=== PATIENT | female | born 1960 | race Caucasian/White ===

== ENCOUNTER 2024-04-16 17:50 | Observation (INO) | payer BC ==
--- NOTE | 2024-04-16 18:01 | ED ---
SOB HPI - General Chief Complaint: Shortness of Breath Stated Complaint: INGA Source: patient, EMS, RN notes reviewed, old records reviewed Mode of arrival: ambulatory Limitations: no limitations - History of Present Illness Initial Comments: This is a 63-year-old female to ER for severe shortness of breath throughout the day today. Worse when she woke up. History of smoking no lung doctor does have bad COPD. No travel history no sick contacts no current chest pain MD Complaint: shortness of breath, cough, chest pain, pain with inspiration -: days(s) Severity: moderate Severity scale (1-10): 6 Consistency: constant Improves With: nothing Worsens With: nothing Context: recent URI, recent illness Associated Symptoms: chest pain, pain with inspiration, cough, sputum production Treatments Prior to Arrival: none - Related Data Home Oxygen Therapy: No Home Medications Medication Instructions Recorded Confirmed Albuterol Sulfate [Albuterol 2 puff INHALATION RT-QID PRN 04/16/24 04/16/24 Sulfate Hfa] Aspirin EC [Ecotrin] 325 mg PO DAILY PRN 04/16/24 04/16/24 rOPINIRole HCL [Requip] 4 mg PO HS PRN 04/16/24 04/16/24 Allergies Allergy/AdvReac Type Severity Reaction Status Date / Time No Known Allergies Allergy Verified 04/16/24 19:04 Review of Systems ROS Statement: Those systems with pertinent positive or pertinent negative responses have been documented in the HPI. ROS Other: All systems not noted in ROS Statement are negative. Past Medical History Past Medical History: COPD History of Any Multi-Drug Resistant Organisms: None Reported Additional Past Surgical History / Comment(s): right foot surgery. Past Psychological History: No Psychological Hx Reported Smoking Status: Current some day smoker Past Alcohol Use History: None Reported Past Drug Use History: Marijuana General Exam Limitations: no limitations General appearance: alert, anxious, in distress Head exam: Present: atraumatic, normocephalic, normal inspection Eye exam: Present: normal appearance, PERRL, EOMI. Absent: scleral icterus, conjunctival injection, periorbital swelling ENT exam: Present: normal exam, mucous membranes moist Neck exam: Present: normal inspection. Absent: tenderness, meningismus, lymphadenopathy Respiratory exam: Present: normal lung sounds bilaterally, respiratory distress, wheezes, accessory muscle use, decreased breath sounds, prolonged expiratory. Absent: rales, rhonchi, stridor Cardiovascular Exam: Present: normal rhythm, tachycardia, normal heart sounds. Absent: systolic murmur, diastolic murmur, rubs, gallop, clicks GI/Abdominal exam: Present: soft, normal bowel sounds. Absent: distended, tenderness, guarding, rebound, rigid Extremities exam: Present: normal inspection, full ROM, normal capillary refill. Absent: tenderness, pedal edema, joint swelling, calf tenderness Back exam: Present: normal inspection Neurological exam: Present: alert, oriented X3, CN II-XII intact Psychiatric exam: Present: normal affect, normal mood Skin exam: Present: warm, dry, intact, normal color. Absent: rash Course Vital Signs 04/16/24 04/16/24 04/16/24 17:53 18:27 18:43 Temperature 98 F Pulse Rate 117 H 115 H 115 H Respiratory 18 Rate Blood Pressure 158/103 O2 Sat by Pulse 94 L Oximetry 04/16/24 18:44 Temperature Pulse Rate 110 H Respiratory 20 Rate Blood Pressure 122/80 O2 Sat by Pulse 96 Oximetry - Reevaluation(s) Reevaluation #1: 04/16/24 18:01 Medical records reviewed Reevaluation #2: 04/16/24 19:42 Patient's heart rate is still high short of breath here in the ER Reevaluation #3: 04/16/24 19:42 Patient informed of results questions answered Reevaluation #4: Was pt. sent in by a medical professional or institution (, PA, POWER PLANT TECHNICIAN, urgent care, hospital, or custodial...) When possible be specific @ -no Did you speak to anyone other than the patient for history (EMS, parent, family, police, friend...)? What history was obtained from this source @ -no Did you review nursing and triage notes (agree or disagree)? Why? @ -agree Are old charts reviewed (outside hosp., previous admission, EMS record, old EKG, old radiological studies, urgent care reports/EKG's, custodial records)? Report findings @ -yes Differential Diagnosis (chest pain, altered mental status, abdominal pain women, abdominal pain men, vaginal bleeding, weakness, fever, dyspnea, syncope, headache, dizziness, GI bleed, back pain, seizure, CVA, palpatations, mental hea lth, musculoskeletal)? @ -prior EKG interpreted by me (3pts min.). @ -yes X-rays interpreted by me (1pt min.). @ -yes negative for acute disease CT interpreted by me (1pt min.). @ -no U/S interpreted by me (1pt. min.). @ -no What testing was considered but not performed or refused? (CT, X-rays, U/S, labs)? Why? @ -none What meds were considered but not given or refused? Why? @ -none Did you discuss the management of the patient with other professionals (professionals i.e. , PA, POWER PLANT TECHNICIAN, lab, RT, psych nurse, certified social workers in health care, host and hostess, teacher, forest fire officer, case management rn)? Give summary @ -no Was smoking cessation discussed for >3mins.? @ -no Was critical care preformed (if so, how long)? @ -no Were there social determinants of health that impacted care today? How? (Homelessness, low income, unemployed, alcoholism, drug addiction, transportation, low edu. Level, literacy, decrease access to med. care, usp, rehab)? @ -none Was there de-escalation of care discussed even if they declined (Discuss DNR or withdrawal of care, Hospice)? DNR status @ -no What co-morbidities impacted this encounter? (DM, HTN, Smoking, COPD, CAD, Cancer, CVA, ARF, Chemo, Hep., AIDS, mental health diagnosis, sleep apnea, morbid obesity)? @ -none Was patient admitted / discharged? Hospital course, mention meds given and route, prescriptions, significant lab abnormalities, going to OR and other per tinent info. @ - Undiagnosed new problem with uncertain prognosis? @ -no Drug Therapy requiring intensive monitoring for toxicity (Heparin, Nitro, Insulin, Cardizem)? @ -no Were any procedures done? @ -no Diagnosis/symptom? @ - Acute, or Chronic, or Acute on Chronic? @ -Acute Uncomplicated (without systemic symptoms) or Complicated (systemic symptoms)? @ -Complicated Side effects of treatment? @ -no Exacerbation, Progression, or Severe Exacerbation? @ -exacerbation Poses a threat to life or bodily function? How? (Chest pain, [place], [place], pneumonia, PE, COPD, DKA, ARF, appy, cholecystitis, CVA, Diverticulitis, Homicidal, Suicidal, threat to staff... and all critical care pts) @ -yes Reevaluation #5: Differential Dyspnea: Coronary syndrome, arrhythmia, tamponade, asthma, COPD, pulmonary embolism, pneumonia, pneumothorax, pulmonary effusion, anaphylaxis, diabetic ketoacidosis, flailed chest, pulmonary contusion, diaphragmatic rupture, anemia, neuromuscula r, this is not meant to be an all-inclusive list. - Consultations Consultation #1: Spoke with sound who agrees to admit this patient Medical Decision Making - Medical Decision Making 63 female severe COPD exacerbation will admit for breathing treatments and supportive care - Lab Data Result diagrams: 04/16/24 18:35 04/16/24 18:35 Lab Results 04/16/24 04/16/24 04/16/24 Range/Units 18:35 18:35 18:35 WBC 7.6 (3.8-10.6) k/uL RBC 4.80 (3.80-5.40) m/uL Hgb 15.0 (11.4-16.0) gm/dL Hct 45.8 (34.0-46.0) % MCV 95.4 (80.0-100.0) fL MCH 31.2 (25.0-35.0) pg MCHC 32.7 (31.0-37.0) g/dL RDW 12.6 (11.5-15.5) % Plt Count 232 (150-450) k/uL MPV 6.9 Neutrophils % 76 % Lymphocytes % 11 % Monocytes % 9 % Eosinophils % 0 % Basophils % 1 % Neutrophils # 5.7 (1.3-7.7) k/uL Lymphocytes # 0.8 L (1.0-4.8) k/uL Monocytes # 0.7 (0-1.0) k/uL Eosinophils # 0.0 (0-0.7) k/uL Basophils # 0.1 (0-0.2) k/uL PT 11.1 (10.0-12.5) sec INR 1.0 (<1.2) APTT 24.5 (22.0-30.0) sec Sodium 130 L (137-145) mmol/L Potassium 3.5 (3.5-5.1) mmol/L Chloride 93 L (98-107) mmol/L Carbon Dioxide 30 (22-30) mmol/L Anion Gap 7 mmol/L BUN 11 (7-17) mg/dL Creatinine 0.55 (0.52-1.04) mg/dL Est GFR (CKD-EPI)AfAm >90 (>60 ml/min/1.73 sqM) Est GFR (CKD-EPI)NonAf >90 (>60 ml/min/1.73 sqM) Glucose 123 H (74-99) mg/dL Plasma Lactic Acid Bryson (0.7-2.0) mmol/L Calcium 8.4 (8.4-10.2) mg/dL Magnesium 1.8 (1.6-2.3) mg/dL Total Bilirubin 0.5 (0.2-1.3) mg/dL AST 33 (14-36) U/L ALT 18 (4-34) U/L Alkaline Phosphatase 70 (38-126) U/L Troponin I (0.000-0.034) ng/mL NT-Pro-B Natriuret Pep 961 pg/mL Total Protein 6.5 (6.3-8.2) g/dL Albumin 4.0 (3.5-5.0) g/dL 04/16/24 04/16/24 Range/Units 18:35 18:35 WBC (3.8-10.6) k/uL RBC (3.80-5.40) m/uL Hgb (11.4-16.0) gm/dL Hct (34.0-46.0) % MCV (80.0-100.0) fL MCH (25.0-35.0) pg MCHC (31.0-37.0) g/dL RDW (11.5-15.5) % Plt Count (150-450) k/uL MPV Neutrophils % % Lymphocytes % % Monocytes % % Eosinophils % % Basophils % % Neutrophils # (1.3-7.7) k/uL Lymphocytes # (1.0-4.8) k/uL Monocytes # (0-1.0) k/uL Eosinophils # (0-0.7) k/uL Basophils # (0-0.2) k/uL PT (10.0-12.5) sec INR (<1.2) APTT (22.0-30.0) sec Sodium (137-145) mmol/L Potassium (3.5-5.1) mmol/L Chloride (98-107) mmol/L Carbon Dioxide (22-30) mmol/L Anion Gap mmol/L BUN (7-17) mg/dL Creatinine (0.52-1.04) mg/dL Est GFR (CKD-EPI)AfAm (>60 ml/min/1.73 sqM) Est GFR (CKD-EPI)NonAf (>60 ml/min/1.73 sqM) Glucose (74-99) mg/dL Plasma Lactic Acid Bryson 1.2 (0.7-2.0) mmol/L Calcium (8.4-10.2) mg/dL Magnesium (1.6-2.3) mg/dL Total Bilirubin (0.2-1.3) mg/dL AST (14-36) U/L ALT (4-34) U/L Alkaline Phosphatase (38-126) U/L Troponin I <0.012 (0.000-0.034) ng/mL NT-Pro-B Natriuret Pep pg/mL Total Protein (6.3-8.2) g/dL Albumin (3.5-5.0) g/dL - EKG Data -: EKG Interpreted by Me (EKG sinus tachycardia 116 TN 124 QRS 85 QTc 440) - Radiology Data Radiology results: report reviewed (Chest x-ray is negative for acute disease), image reviewed Disposition Referrals: Shan Fu MD [Primary Care Provider] - 1-2 days
[2024-04-16] MEDS: IPRATROPIUM-ALBUTEROL 3 ML NEB INHALATION STA (18:26)
--- NOTE | 2024-04-16 18:31 | XR ---
EXAMINATION TYPE: XR chest 1V portable DATE OF EXAM: 04/16/2024 6:23 PM COMPARISON: None. CLINICAL INDICATION: Female, 63 years old with history of sob; [facility] TECHNIQUE: XR chest 1V portable Frontal view of the chest. FINDINGS: Cardiac silhouette is within normal limits for size. No acute focal consolidation. Questionable additional left upper lobe spiculated region of nodularity versus scarring. No acute focal consolidation. No pleural effusion. No pneumothorax. Indeterminate spiculated 11 mm region of nodularity in the right upper lobe. No acute osseous abnormality. IMPRESSION: 1. No acute cardiopulmonary disease/process. 2. Indeterminant spiculated region of nodularity in the right upper lobe measuring [address] chest for further evaluation. [facility], , 04/16/2024 6:29 PM
[2024-04-16 18:45] LABS: Basophils # (A) 0.1 k/uL (0-0.2); Basophils % (A) 1 %; Eosinophils % (A) 0 %; HCT 45.8 % (34.0-46.0); Lymphocytes # (A) 0.8 k/uL (1.0-4.8); Lymphocytes % (A) 11 %; MCH 31.2 pg (25.0-35.0); MCHC 32.7 g/dL (31.0-37.0); MCV 95.4 fL (80.0-100.0); Mean Platelet Volume 6.9; Monocytes # (A) 0.7 k/uL (0-1.0); Monocytes % (A) 9 %; Neutrophils # (A) 5.7 k/uL (1.3-7.7); Neutrophils % (A) 76 %; Platelet Count 232 k/uL (150-450); RDW 12.6 % (11.5-15.5); WBC 7.6 k/uL (3.8-10.6)
[2024-04-16] MEDS: SODIUM CHLORIDE 0.9% 1,000 ML IV STA ×3 (18:51→20:17)
[2024-04-16 18:53] LABS: Partial Thromboplastin Time 24.5 sec (22.0-30.0); Prothrombin Time 11.1 sec (10.0-12.5)
[2024-04-16 18:56] LABS: ALT 18 U/L (4-34); AST 33 U/L (14-36); African American GFR (CKD) >90 (>60 ml/min/1.73 sqM); Alkaline Phosphatase 70 U/L (38-126); Anion Gap 7 mmol/L; Blood Urea Nitrogen 11 mg/dL (7-17); Calcium 8.4 mg/dL (8.4-10.2); Carbon Dioxide 30 mmol/L (22-30); Chloride 93 mmol/L (98-107); Glucose 123 mg/dL (74-99); Magnesium 1.8 mg/dL (1.6-2.3); Non-African American GFR(CKD) >90 (>60 ml/min/1.73 sqM); Potassium 3.5 mmol/L (3.5-5.1); Sodium 130 mmol/L (137-145); Total Bilirubin 0.5 mg/dL (0.2-1.3); Total Protein 6.5 g/dL (6.3-8.2)
[2024-04-16 19:04] LABS: NT-Pro-B-Type Natriuretic Pept 961 pg/mL
[2024-04-16] MEDS ORDERED: ONDANSETRON 4 MG/2 ML VIAL IVP PRN (19:39)
[2024-04-16] MEDS ORDERED: MORPHINE SULFATE 4 MG/ML SYRINGE IV PRN (19:39)
[2024-04-16] MEDS ORDERED: NALOXONE 0.4 MG/ML 1 ML VIAL IV PRN (19:39)
[2024-04-16] MEDS ORDERED: LORazepam 0.5 MG TAB PO PRN (19:39)
[2024-04-16] MEDS: methylPREDNISolone SOD SUCCI 125 MG/2 ML VIAL IV STA (20:16)
[2024-04-16] MEDS: ALBUTEROL NEBULIZED 2.5 MG/3 ML INHALATION SCH (20:24)
[2024-04-16 21:51] LABS: ABG Base Excess 0.5 mmol/L; ABG HCO3 28 mmol/L (21-25); ABG Oxygen Saturation 98.5 % (94-97); ABG PCO2 57 mmHg (35-45); ABG PO2 112 mmHg (83-108); ABG TCO2 30 mmol/L (19-24); Allen Test Performed? Yes
[2024-04-16] MEDS: ACETAMINOPHEN TAB 325 MG TAB PO PRN (22:04)
[2024-04-16] MEDS: SODIUM CHLORIDE 0.9% 1,000 ML IV SCH (22:15)
[2024-04-16] MEDS ORDERED: rOPINIRole HCL 4 MG TABLET PO PRN (23:13)
--- NOTE | 2024-04-17 00:59 | P.HPIM ---
History of Present Illness H&P Date: 04/16/24 Patient is a 63-year-old female with past history of COPD (not on home oxygen) presents to the ER with worsening shortness of breath. Patient states that she has been feeling short of breath for the past 1 week but it has worsened from the past 2 days. Patient was feeling very short of breath early this morning and her blood pressure was 170/106. Patient therefore decided to come to the ER for further evaluation of her ongoing symptoms. Patient has also been experiencing moderately productive cough which initially was clear but has turned more thick and greenish in color in the last couple of days. Patient is also experiencing mild fever with chills associate with some fatigue and anila rgy. Patient is not established with a warehouse assistant but currently uses albuterol prescribed by her PCP. Apparently she has hx of COPD stage 3 as per PCP. Patient have noted that she has been using her albuterol inhaler up to 4-5 times per day for the past week or so. Patient is not dependent on home oxygen. Patient denies any previous hospitalization for COPD exacerbation. Denies any recent travel or hospitalization. Patient is not on any blood thinner. Patient has significant smoking history. She has smoked close to a pack per day for the last 4 years. Patient otherwise denies any chest pain, swelling of legs, nausea, vomiting, weakness and numbness or tingling in upper or lower extremities. Laboratory data: WBC 7.6, hemoglobin 15.0, platelet count 232 ABG: pH 7.30, pCO2 57, HCO3 28 Sodium 130, potassium 3.5, chloride 93, bicarb 30, BUN 11, creatinine 0.55, glucose 150, magnesium 1.8, total bili 0.5, AST 33, ALT 18, ALP 78, troponin is less than 0.012, NT proBNP 961 Images: Chest x-ray in the ER interpreted independently shows no acute cardiopulmonary disease or process. There is a indeterminate spiculated region of nodularity in the right upper lobe measuring up to 11 mm. Vitals: Vitals on arrival: 98 F, heart rate 117, respirate 18, blood pressure 158/103, oxygen saturation 94% on 3 L by nasal, Review of systems: Pertinent positives and negatives as discussed in HPI, a complete review of systems was performed and all other systems are negative. Social history: Tobacco: As in HPI Alcohol: None Recreational drugs: None Travel: None Family History: Mother has ovarian cancer Physical examination: Vital signs reviewed General: non toxic, no distress, older than stated age, normal weight Derm: no unusual rashes/lesions, warm Head: atraumatic, normocephalic, symmetric Eyes: EOMI, anicteric sclera, pupils equal round reactive to light ENT: Nose and ears atraumatic Neck: No cervical lymphadenopathy, trachea midline, supple Mouth: no lip lesion, mucus membranes moist Cardiovascular: S1S2 reg, no murmur, positive dorsalis pedis pulse bilateral, no edema Lungs: Bilateral diffuse inspiratory and expiratory wheezing, no rhonchi, no rales, no accessory muscle use Abdominal: soft, nontender to palpation, no guarding Ext: muscle strength 5 out of 5 in all 4 extremities grossly, no gross muscle atrophy, no contractures, Neuro: CN II-XI grossly intact, no gross focal neuro deficits Psych: Alert, oriented, appropriate affect Assessment/Plan: Patient is a 63-year-old female with past history of COPD presents to the ER with worsening shortness of breath for the past 2 days. Case was discussed with the Emergency Room provider and decision was made to admit the patient for COPD exacerbation #COPD exacerbation #Acute hypoxemic respiratory failure Patient received a stat dose of IV Solu-Medrol 125 mg Continue with IV Solu-Medrol 60 mg every 6 hour DuoNeb as scheduled and [id number] Consult pulmonology Oxygen therapy as needed with target SpO2 between 88% to 92% No need for antibiotic at this time CBC in a.m. #Incidental finding of lung nodule Chest x-ray shows there is a indeterminate spiculated region of nodularity in the right upper lobe measuring up to 11 mm. Outpatient follow-up for repeat CT scan #Hypovolemic hyponatremia secondary to poor oral intake Continue with IV normal saline at 75 cc/h Continue monitor BMP in a.m. #Hyperglycemia Serum glucose 123 Accu-Cheks and insulin scale insulin Repeat HbA1c #Uncompensated respiratory acidosis in the setting of COPD exacerbation ABG: pH 7.30, pCO2 57, HCO3 28 DVT prophylaxis: Lovenox subcu 40 mg daily GI prophylaxis: None F: IV normal saline 75 cc per E: Replete as needed N: Regular diet A: Ambulatory at baseline The patient is admitted with an anticipated less than than 2 midnight stay for evaluation of COPD exacerbation CODE STATUS: DNR Discussed with: Patient Anticipated discharge place: Pending total course Dictation was produced using mPortal dictation software. Please excuse any grammatical, word or spelling errors. Past Medical History Past Medical History: COPD History of Any Multi-Drug Resistant Organisms: None Reported Additional Past Surgical History / Comment(s): right foot surgeryx3 Past Anesthesia/Blood Transfusion Reactions: No Reported Reaction Past Psychological History: No Psychological Hx Reported Smoking Status: Current some day smoker Past Alcohol Use History: None Reported Past Drug Use History: Marijuana Medications and Allergies Home Medications Medication Instructions Recorded Confirmed Type Albuterol Sulfate [Albuterol 2 puff INHALATION RT-QID PRN 04/16/24 04/16/24 History Sulfate Hfa] Aspirin EC [Ecotrin] 325 mg PO DAILY PRN 04/16/24 04/16/24 History rOPINIRole HCL [Requip] 4 mg PO HS PRN 04/16/24 04/16/24 History Allergies Allergy/AdvReac Type Severity Reaction Status Date / Time No Known Allergies Allergy Verified 04/16/24 19:04 Physical Exam Vitals: Vital Signs Temp Pulse Pulse Resp BP BP Pulse Ox 04/16/24 21:30 98.1 F 125 H 22 157/89 92 L 04/16/24 21:15 98.2 F 105 H 23 124/59 98 04/16/24 20:24 114 H 04/16/24 20:00 98.7 F 108 H 22 126/62 98 04/16/24 18:44 110 H 20 122/80 96 04/16/24 18:43 115 H 04/16/24 18:27 115 H 04/16/24 17:53 98 F 117 H 18 158/103 94 L Intake and Output 04/16/24 04/16/24 04/16/24 06:59 14:59 22:59 Other: # Voids 2 Weight 54.431 kg Results CBC & Chem 7: 04/16/24 18:35 04/16/24 18:35 Labs: Abnormal Lab Results - Last 24 Hours (Table) 04/16/24 04/16/24 04/16/24 Range/Units 18:35 18:35 21:46 Lymphocytes # 0.8 L (1.0-4.8) k/uL ABG pH 7.30 L (7.35-7.45) ABG pCO2 57 H (35-45) mmHg ABG pO2 112 H (83-108) mmHg ABG HCO3 28 H (21-25) mmol/L ABG Total CO2 30 H (19-24) mmol/L ABG O2 Saturation 98.5 H (94-97) % Sodium 130 L (137-145) mmol/L Chloride 93 L (98-107) mmol/L Glucose 123 H (74-99) mg/dL Thrombosis Risk Factor Assmnt - Choose All That Apply Any of the Below Risk Factors Present?: Yes Each Factor Represents 1 point: Abnormal pulmonary function (COPD) Other Risk Factors: Yes Each Risk Factor Represents 2 Points: Age 61-74 years Other congenital or acquired thrombophilia - If yes, enter type in comment: No Thrombosis Risk Factor Assessment Total Risk Factor Score: 3 Thrombosis Risk Factor Assessment Level: Moderate Risk
[2024-04-17] MEDS: methylPREDNISolone SOD SUCCI 125 MG/2 ML VIAL IV SCH (01:06)
[2024-04-17] MEDS: ENOXAPARIN 40 MG/0.4 ML SYRINGE SQ SCH (01:06)
[2024-04-17 06:32] LABS: Glucose,Whole Blood 148 mg/dL (70-110)
[2024-04-17] MEDS: INSULIN ASPART (NovoLOG) 100 UNIT/ML VIAL SQ SCH (06:33)
--- NOTE | 2024-04-17 07:04 | XR ---
EXAMINATION TYPE: XR chest 1V DATE OF EXAM: 04/17/2024 COMPARISON: 04/16/2024 CLINICAL INDICATION: Female, 63 years old with history of sob; TECHNIQUE: Single frontal view of the chest is obtained. FINDINGS: There is hyperinflation the lungs, scattered interstitial opacity and lucency in the upper lobes consistent with COPD. There is no airspace consolidation. There is no pleural effusion or pneumothorax. Heart and pulmonary vascular maternal. The osseous structures are intact. IMPRESSION: 1. COPD 2. No acute cardiopulmonary disease. [facility], Workstation: [facility], 04/17/2024 7:01 AM
[2024-04-17] MEDS ORDERED: IPRATROPIUM-ALBUTEROL 3 ML NEB INHALATION PRN (07:45)
--- NOTE | 2024-04-17 08:18 | P.CNPUL ---
History of Present Illness Consult date: 04/17/24 Requesting physician: Mayo Burns Reason for consult: dyspnea, cough, COPD, hypoxemia Chief complaint: Shortness of breath. History of present illness: Pulmonary consult dated April 17, 2024. 63-year-old female admitted with a diagnosis of COPD exacerbation, shortness of breath. The patient apparently sees an outside physician, and has never seen a ultimate hoops trainer. She does continue to smoke, and has been smoking since the age of 13. She comes in complaining of shortness of breath, cough, wheezing, chest tightness, etc. She was evaluated in the emergency department, and admitted. We see her this morning in room 636. She is currently on oxygen at 4 L by nasal cannula. She is getting saline at 75 cc an hour. In addition to the findings of COPD on chest x-ray, she has a small lesion, in the right upper lung, which may be an early lung cancer, and will need outpatient evaluation. The only medications that she takes for her lungs, is an albuterol inhaler. She denies other major medical problems. White count 7.6, hemoglobin 15, macro 45.8, platelet count normal. D-dimer 0.36. Blood gases, on 32% oxygen show pO2 of 112, pCO2 of 57, pH is 7.30. Sodium 130, potassium 3.5, chlorides 93, CO2 30, BUN 11, creatinine 0.55. Chest x-ray as above. Review of Systems REVIEW OF SYSTEMS: CONSTITUTIONAL: [Negative.] NEUROLOGIC: [ Negative.] HEENT: [ Negative.] CARDIAC: [Negative.] PULMONARY: Shortness of breath. GI: [Negative.] : [Negative.] RHEUMATOLOGIC: [ Negative.] IMMUNOLOGIC: [ Negative.] ENDOCRINE: [Negative. ] DERMATOLOGIC: [Negative.] Past Medical History Past Medical History: COPD History of Any Multi-Drug Resistant Organisms: None Reported Additional Past Surgical History / Comment(s): right foot surgeryx3 Past Anesthesia/Blood Transfusion Reactions: No Reported Reaction Past Psychological History: No Psychological Hx Reported Smoking Status: Current some day smoker Past Alcohol Use History: None Reported Past Drug Use History: Marijuana Medications and Allergies Home Medications Medication Instructions Recorded Confirmed Type Albuterol Sulfate [Albuterol 2 puff INHALATION RT-QID PRN 04/16/24 04/16/24 History Sulfate Hfa] Aspirin EC [Ecotrin] 325 mg PO DAILY PRN 04/16/24 04/16/24 History rOPINIRole HCL [Requip] 4 mg PO HS PRN 04/16/24 04/16/24 History Allergies Allergy/AdvReac Type Severity Reaction Status Date / Time No Known Allergies Allergy Verified 04/16/24 19:04 Physical Exam Osteopathic Statement: *. No significant issues noted on an osteopathic structural exam other than those noted in the History and Physical/Consult. Vitals: Vital Signs Temp Pulse Pulse Resp BP BP Pulse Ox 04/17/24 07:00 98.0 F 61 16 116/72 98 04/17/24 02:00 98.5 F 81 18 109/69 92 L 04/16/24 21:30 98.1 F 125 H 22 157/89 92 L 04/16/24 21:15 98.2 F 105 H 23 124/59 98 04/16/24 20:24 114 H 04/16/24 20:00 98.7 F 108 H 22 126/62 98 04/16/24 18:44 110 H 20 122/80 96 04/16/24 18:43 115 H 04/16/24 18:27 115 H 04/16/24 17:53 98 F 117 H 18 158/103 94 L Intake and Output 04/16/24 04/17/24 04/17/24 22:59 06:59 14:59 Other: # Voids 2 2 Weight 54.431 kg No acute distress, oriented 3. No respiratory distress. Currently on 4 L. HEENT examination is grossly unremarkable. Mucous membranes are moist. No oral lesions. Neck supple. Full range of motion. No adenopathy thyromegaly or neck vein distention. Cardiovascular examination reveals regular rhythm rate. S1-S2 normal. No S3 or S4. No discernible murmur noted. Lungs reveal mild expiratory rhonchi and wheezes. Breath sounds equal. No crackles. Abdomen soft bowel sounds are heard. No masses or tenderness. Extremities are intact. No cyanosis clubbing or edema. Skin is without rash or lesion. Neurologic examination is brief but nonfocal. Results - Laboratory Findings CBC and BMP: 04/16/24 18:35 04/16/24 18:35 ABG ABG pH 7.30 (7.35-7.45) L 04/16/24 21:46 ABG pCO2 57 mmHg (35-45) H 04/16/24 21:46 ABG pO2 112 mmHg (83-108) H 04/16/24 21:46 ABG O2 Saturation 98.5 % (94-97) H 04/16/24 21:46 PT/INR, D-dimer PT 11.1 sec (10.0-12.5) 04/16/24 18:35 INR 1.0 (<1.2) 04/16/24 18:35 D-Dimer 0.36 mg/L FEU (<0.60) 04/16/24 19:45 Abnormal lab findings: Abnormal Labs 04/16/24 04/16/24 04/16/24 18:35 18:35 21:46 Lymphocytes # 0.8 L ABG pH 7.30 L ABG pCO2 57 H ABG pO2 112 H ABG HCO3 28 H ABG Total CO2 30 H ABG O2 Saturation 98.5 H Sodium 130 L Chloride 93 L Glucose 123 H POC Glucose (mg/dL) 04/17/24 06:31 Lymphocytes # ABG pH ABG pCO2 ABG pO2 ABG HCO3 ABG Total CO2 ABG O2 Saturation Sodium Chloride Glucose POC Glucose (mg/dL) 148 H - Diagnostic Findings Chest x-ray: image reviewed Assessment and Plan Assessment: Acute hypoxemic respiratory failure, secondary to COPD exacerbation. Presumed COPD, from 50 years of tobacco use. Small lesion, right upper lobe, which may be early bronchogenic carcinoma, and will need outpatient evaluation. Plan: Plan dated April 17, 2024. While the patient is here, we should go ahead and order a CT scan of the chest with contrast. This will better define the lesion in the right upper lobe. The patient will likely need an outpatient PET scan. The patient is counseled about the importance of smoking cessation. She has been smoking for 50 years. We add DuoNebs, and Symbicort to her regimen. She is already on Solu-Medrol. Additional recommendations and suggestions are forthcoming. Prognosis is guarded. Time with Patient: Greater than 30
[2024-04-17] MEDS: IPRATROPIUM-ALBUTEROL 3 ML NEB INHALATION SCH (09:04)
[2024-04-17] MEDS: SYMBICORT 160-4.5 MCG INHALER INHALATION SCH (09:04)
[2024-04-17 09:43] LABS: Basophils # (A) 0.02 X 10*3/uL (0.00-0.10); Basophils % (A) 0.4 %; Eosinophils # (A) 0 X 10*3/uL (0.04-0.35); Eosinophils % (A) 0 %; HCT 42.5 % (37.2-46.3); HGB 13.8 g/dL (12.0-15.0); Lymphocytes # (A) 0.62 X 10*3/uL (0.90-5.00); MCH 30.7 pg (27.0-32.0); MCHC 32.5 g/dL (32.0-37.0); MCV 94.4 FL (80.0-97.0); Mean Platelet Volume 9.3 FL (9.5-12.2); Monocytes % (A) 4.2 %; NRBC Per 100 WBC 0 X 10*3/uL (0.00-0.01); Neutrophils # (A) 3.91 X 10*3/uL (1.80-7.70); Platelet Count 233 X 10*3/uL (140-440); RDW 13.2 % (11.5-14.5); WBC 4.77 X 10*3/uL (4.50-10.00)
[2024-04-17 09:49] LABS: ALT 14 U/L (8-44); AST 28 U/L (13-35); Albumin 3.6 g/dL (3.8-4.9); Albumin/Globulin Ratio 1.71 Ratio (1.60-3.17); Alkaline Phosphatase 62 U/L (41-126); Blood Urea Nitrogen 8.6 mg/dL (9.0-27.0); Calcium 8.2 mg/dL (8.7-10.3); Carbon Dioxide 27.9 mmol/L (21.6-31.8); Chloride 107 mmol/L (96-109); Globulin 2.1 g/dL (1.6-3.3); Glucose 133 mg/dL (70-110); Magnesium 1.9 mg/dL (1.5-2.4); Phosphorus 3.6 mg/dL (2.4-5.1); Potassium 3.7 mmol/L (3.5-5.5); Sodium 143 mmol/L (135-145); Total Bilirubin <0.2 mg/dL (0.3-1.2); Total Protein 5.7 g/dL (6.2-8.2)
[2024-04-17 11:48] LABS: Glucose,Whole Blood 206 mg/dL (70-110)
[2024-04-17] MEDS: guaiFENesin-Coden 100-10MG/5ML 10 ML CUP PO PRN (14:28)
[2024-04-17 17:03] LABS: Glucose,Whole Blood 143 mg/dL (70-110)
--- NOTE | 2024-04-17 17:53 | P.PN ---
Subjective Progress Note Date: 04/17/24 Hospital course: Patient is a very pleasant 63-year-old female with a past medical history of COPD and nicotine dependence. She presented to the emergency department on 04/16/2024 secondary to reports of shortness of breath x 1 week progressively worsening accompanied by productive cough and wheezing. On arrival to our facility, patient underwent evaluation in the emergency department. Vital signs upon arrival show pressure 158/103, heart rate 117, respiratory rate 18, temp 98.0 F, and SpO2 of 94% on 3 L EKG completed showing sinus tachycardia heart 16 bpm. Chest x-ray completed negative for acute cardiopulmonary process showing i ndeterminate spiculated region of nodularity in the right upper lobe measuring [address] chest for evaluation. Labs completed and reviewed. CBC unremarkable. Coagulation profile normal findings. D-dimer negative at 0.36. BMP showing hyponatremia with sodium of 130 and hypochloremia chloride of 93. Blood glucose 123. Hemoglobin A1c 5.4%. Magnesium 1.8. Liver profile unremarkable. Troponin was negative at less than 0.012 and proBNP was 961. Patient admitted under our services with consultation to pulmonology. Physical exam: Vital signs reviewed and stable. General: Nontoxic, no distress and appears stated age. Thin Build. Derm: Skin warm and dry, normal coloration for ethnicity. Head: Atraumatic, normocephalic and symmetric. Eyes: EOM's intact, no lid lag, and anicteric sclera Mouth: no lip lesions, mucus membranes moist Cardiovascular: regular rate and rhythm with normal S1S2, no murmur, positive posterior tibial pulses bilaterally, and cap refill < 2 seconds. Lungs: Respirations even, regular, and unlabored on 4 L O2 via nasal cannula. Lungs diminished with expiratory wheezes throughout all zhang. No rhonchi, no rales, no wheezing, and no accessory muscle usage. Abdominal: soft, nontender to palpation, no guarding, no appreciable organomegaly Ext: ROM intact. No gross muscle atrophy, no edema, no contractures Neuro: Speech clear, face symmetrical and CN II-XII grossly intact with no noted focal neuro deficits Psych: Alert and oriented to person, place, time, and situation. Appropriate and pleasant affect. Assessment and Plan of Care: COPD with acute exacerbation Acute respiratory failure with hypoxia -Pulmonology following, discussed plan of care with pulmonary MULTIMEDIA DEVELOPER. -Oxygenation to be administered and titrated as needed to maintain SPO2 equal to or greater than 92% -Telemetry monitoring. -Monitor pulse-oximetry -Duonebs scheduled 4 times daily and as needed for SOB and/or wheezing -Incentive Spirometry -Steroids: Solu-Medrol 60 mg IVP every 6 hours. Spiculated pulmonary nodule right upper lobe -Recommend outpatient follow-up/surveillance with CT. Nicotine dependence -Recommend smoking cessation. Order placed for nicotine patch 14 mg daily. Data and imaging reviewed: -Vital signs reviewed. Blood pressure 116/72, heart rate 61, respiratory rate 16, temp 98.0 F, and SpO2 of 98% on 4 L. -Morning labs completed and reviewed. CBC unremarkable. BMP showed no significant abnormalities. Blood glucose 133. Magnesium 1.9. CODE STATUS: Full Code DVT prophylaxis: Lovenox Anticipated discharge date: Pending clinical course Anticipated discharge place: Home Patient was seen independently by Nurse Pracitioner. This document was prepared using [employer] dictation software. Please allow for errors in embedded systems software developer, while rare they do occur. Gabe Disla NP rendered care for this patient independently, reviewed the findings and plan as documented in the note above and agree with plan. I did not physically speak with or examine the patient on this date. Objective - Vital Signs Vital signs: Vital Signs Temp 98.0 F 04/17/24 07:00 Pulse 61 04/17/24 07:00 Resp 16 04/17/24 07:00 BP 116/72 04/17/24 07:00 Pulse Ox 98 04/17/24 07:00 FiO2 Intake & Output 04/16/24 04/17/24 04/17/24 18:59 06:59 18:59 Weight 54.431 kg 54.431 kg Other: # Voids 2 - Labs CBC & Chem 7: 04/17/24 06:46 04/17/24 06:46 Labs: Abnormal Lab Results - Last 24 Hours (Table) 04/16/24 04/16/24 04/16/24 Range/Units 18:35 18:35 21:46 Lymphocytes # 0.8 L (1.0-4.8) k/uL ABG pH 7.30 L (7.35-7.45) ABG pCO2 57 H (35-45) mmHg ABG pO2 112 H (83-108) mmHg ABG HCO3 28 H (21-25) mmol/L ABG Total CO2 30 H (19-24) mmol/L ABG O2 Saturation 98.5 H (94-97) % Sodium 130 L (137-145) mmol/L Chloride 93 L (98-107) mmol/L Glucose 123 H (74-99) mg/dL POC Glucose (mg/dL) (70-110) mg/dL 04/17/24 Range/Units 06:31 Lymphocytes # (1.0-4.8) k/uL ABG pH (7.35-7.45) ABG pCO2 (35-45) mmHg ABG pO2 (83-108) mmHg ABG HCO3 (21-25) mmol/L ABG Total CO2 (19-24) mmol/L ABG O2 Saturation (94-97) % Sodium (137-145) mmol/L Chloride (98-107) mmol/L Glucose (74-99) mg/dL POC Glucose (mg/dL) 148 H (70-110) mg/dL
[2024-04-17] MEDS: NICOTINE 14MG/24HR PATCH TRANSDERM SCH ×2 (18:32→20:53)
[2024-04-17 20:31] LABS: Glucose,Whole Blood 188 mg/dL (70-110)
[2024-04-17] MEDS: guaiFENesin 600 MG TABLET.ER PO SCH (20:52)
[2024-04-18 06:11] LABS: Glucose,Whole Blood 117 mg/dL (70-110)
[2024-04-18] MEDS ORDERED: RX INFO: IV CONTRAST WAS GIVEN 1 EACH MISC MISCELLANE PRN (12:04)
[2024-04-18 12:06] LABS: Glucose,Whole Blood 180 mg/dL (70-110)
--- NOTE | 2024-04-18 13:41 | CT ---
EXAMINATION TYPE: CT chest w con DATE OF EXAM: 04/18/2024 1:32 PM COMPARISON: None. CLINICAL INDICATION: Female, 63 years old with history of further eval pulm nodule, pulmonary nodule TECHNIQUE: Axial images were obtained at 5 mm thick sections. Reconstructed images are reviewed on [employer] computer in the coronal plane. Contrast used:100 mL of Isovue 300 with IV Contrast, (none if empty) Oral contrast used: (none if empty) CT DLP: 231 mGycm, Automated exposure control for dose reduction was used. FINDINGS: Portion of the thyroid visualized is normal. There is a large triangular density in the posterior left apex extending towards the mid left upper l linette field measuring approximately 1.7 x 4.3 cm. Within the posterior lateral right upper lobe is a 0. 7 x 1.6 cm density. These findings could be related to scarring from the extensive emphysematous martinez ges present. Underlying neoplasm is not excluded. Consider additional workup. No enlarged mediastinal or hilar adenopathy is evident. The ascending aorta diameter at the level o f the main pulmonary artery is 3.2 cm. The main pulmonary artery diameter at the bifurcation is 2.[address] sections are obtained through the upper abdomen. Abdomen is essentially unremarkable. IMPRESSION: 1. There is some increased density at the bilateral lung apices. Findings could be related to scarrin g from extensive emphysematous changes. Neoplasm is not excluded. Consider PET CT for additional eval uation. [facility], , 04/18/2024 1:38 PM
--- NOTE | 2024-04-18 13:52 | P.PN ---
Progress Note - Text Progress Note Date: 04/18/24 Patient is going to require home oxygen as well as a home nebulizer treatments with DuoNebs scheduled 4 times daily and as needed for wheezing/shortness of breath secondary to her COPD.
[2024-04-18 14:29] VITALS: BP 127/83; RESP 17; TEMP 99.3
--- NOTE | 2024-04-18 15:55 | P.PN ---
Subjective Progress Note Date: 04/18/24 63-year-old female admitted with a diagnosis of COPD exacerbation, shortness of breath. The patient apparently sees an outside physician, and has never seen a dry charge process attendant. She does continue to smoke, and has been smoking since the age of 13. She comes in complaining of shortness of breath, cough, wheezing, chest tightness, etc. She was evaluated in the emergency department, and admitted. We see her this morning in room 636. She is currently on oxygen at 4 L by nasal cannula. She is getting saline at 75 cc an hour. In addition to the findings of COPD on chest x-ray, she has a small lesion, in the right upper lung, which may be an early lung cancer, and will need outpatient evaluation. The only medications that she takes for her lungs, is an albuterol inhaler. She denies other major medical problems. White count 7.6, hemoglobin 15, macro 45.8, platelet count normal. D-dimer 0.36. Blood gases, on 32% oxygen show pO2 of 112, pCO2 of 57, pH is 7.30. Sodium 130, potassium 3.5, chlorides 93, CO2 30, BUN 11, creatinine 0.55. Chest x-ray as above. 04/18/2004, the patient is feeling much better. No significant complaints. No significant cough or sputum production. She felt that her oxygen analysis and the patient will be discharged home with home O2 at 4 L nasal cannula. Ne bulizer was also arranged for her. As for the abnormal findings on the CAT scan, this is most likely a scar as the patient has emphysema with upper lobe predominance. Nevertheless, based on her smoking history, follow-up CAT scan within the next 3 to 6 months will be needed. She has no other new complaints otherwise for now. Objective - Vital Signs Vital signs: Vital Signs Temp 99.3 F 04/18/24 14:28 Pulse 99 04/18/24 14:28 Resp 17 04/18/24 14:28 BP 127/83 04/18/24 14:28 Pulse Ox 94 L 04/18/24 14:28 FiO2 Intake & Output 04/17/24 04/18/24 04/18/24 18:59 06:59 18:59 Intake Total 236 Balance 236 Intake: Oral 236 Other: Voiding Method Toilet # Voids 2 2 3 - Exam No acute distress, oriented 3. No respiratory distress. Currently on 4 L. HEENT examination is grossly unremarkable. Mucous membranes are moist. No oral lesions. Neck supple. Full range of motion. No adenopathy thyromegaly or neck vein distention. Cardiovascular examination reveals regular rhythm rate. S1-S2 normal. No S3 or S4. No discernible murmur noted. Lungs reveal mild expiratory rhonchi and wheezes. Breath sounds equal. No handicrafts teacher ckles. Abdomen soft bowel sounds are heard. No masses or tenderness. Extremities are intact. No cyanosis clubbing or edema. Skin is without rash or lesion. 35 years Neurologic examination is brief but nonfocal. - Labs CBC & Chem 7: 04/17/24 06:46 04/17/24 06:46 Labs: Abnormal Lab Results - Last 24 Hours (Table) 04/17/24 04/17/24 04/18/24 Range/Units 17:01 20:29 06:09 POC Glucose (mg/dL) 143 H 188 H 117 H (70-110) mg/dL 04/18/24 Range/Units 12:04 POC Glucose (mg/dL) 180 H (70-110) mg/dL Assessment and Plan Plan: Acute hypoxemic respiratory failure, secondary to COPD exacerbation. Clinically improved, still on oxygen 4 L/min nasal cannula Presumed COPD, from 50 years of tobacco use. Small lesion, right upper lobe, which may be early bronchogenic carcinoma, and will need outpatient evaluation. Plan: Patient can be discharged home on O2 Recommend a home pulse oximeter Recommend DuoNeb updrafts on outpatient basis. This can be used 4 times daily and as needed Recommend Trelegy Ellipta 100 mcg 1 puff a day Outpatient follow-up regarding the abnormal findings on the CAT scan. This is most likely a scar. Will need a follow-up CAT scan of the next 3 to 6 months and PET scan if needed. The patient will be seeing pulmonary on outpatient basis. Here for discharge. Smoking cessation counseling was done.
[2024-04-18 16:02] VITALS: PULSE 100
--- NOTE | 2024-04-18 16:27 | P.DS ---
Providers Date of admission: 04/16/24 19:42 Expected date of discharge: 04/18/24 Attending physician: Mayo Burns MD Consults: 04/16/24 19:39 Consult Physician Routine Consulting Provider: Eusebio Boateng Consult Reason/Comments: copd Do you want consulting provider notified?: Yes Primary care physician: Shan Fu [facility] Hospital Course: Discharge Diagnosis: COPD with acute exacerbation Acute respiratory failure with hypoxia Spiculated pulmonary nodule right upper lobe vs scar tissue. Recommend outpatient follow-up/surveillance with CT vs PET CT. Nicotine dependence. Recommend smoking cessation. Order placed for nicotine patch 14 mg daily. Hospital Course: Patient is a very pleasant 63-year-old female with a past medical history of COPD and nicotine dependence. She presented to the emergency department on 04/16/2024 secondary to reports of shortness of breath x 1 week progressively worsening accompanied by productive cough and wheezing. On arrival to our facility, patient underwent evaluation in the emergency department. Vital signs upon arrival show pressure 158/103, heart rate 117, respiratory rate 18, temp 98.0 F, and SpO2 of 94% on 3 L EKG completed showing sinus tachycardia heart 16 bpm. Chest x-ray completed negative for acute cardiopulmonary process showing indeterminate spiculated region of nodularity in the right upper lobe measuring [address] chest for evaluation. Labs completed and reviewed. CBC unremarkable. Coagulation profile normal findings. D-dimer negative at 0.36. BMP showing hyponatremia with sodium of 130 and hypochloremia chloride of 93. Blood glucose 123. Hemoglobin A1c 5.4%. Magnesium 1.8. Liver profile unremarkable. Troponin was negative at less than 0.012 and proBNP was 961. Patient admitted under our services with consultation to pulmonology. Patient received supplemental oxygen, scheduled nebulizer treatments and IV steroids. Her condition improved. She was evaluated by pulmonology and home oxygen evaluation was completed. Patient was found to be 94% SpO2 on room air at rest and 86% with ambulation requiring supplemental oxygen of 4 L to maintain SpO2 of 95% at rest and with ambulation. Prescriptions were provided for home oxygen, home nebulizer, and patient discharged home on prednisone taper. Patient encouraged to continue DuoNeb treatments scheduled 4 times daily for the next week and then instructed she may transition to every 4 hours as needed for shortness of breath and/for wheezing. Patient has been cleared from pulmonary perspective for discharge and is medically optimized for discharge at this time. Patient to follow-up outpatient with PCP in 1 to 2 days and with material analyst in 1 week. Physical exam: Vital signs reviewed and stable. General: Nontoxic, no distress and appears stated age. Thin Build. Derm: Skin warm and dry, normal coloration for ethnicity. Head: Atraumatic, normocephalic and symmetric. Eyes: EOM's intact, no lid lag, and anicteric sclera Mouth: no lip lesions, mucus membranes moist Cardiovascular: regular rate and rhythm with normal S1S2, no murmur, positive posterior tibial pulses bilaterally, and cap refill < 2 seconds. Lungs: Respirations even, regular, and unlabored on 4 L O2 via nasal cannula. Lungs diminished but with much improved air movement and continued soft expiratory wheezes. No rhonchi, no rales, no wheezing, and no accessory muscle usage. Abdominal: soft, nontender to palpation, no guarding, no appreciable organomegaly Ext: ROM intact. No gross muscle atrophy, no edema, no contractures Neuro: Speech clear, face symmetrical and CN II-XII grossly intact with no noted focal neuro deficits Psych: Alert and oriented to person, place, time, and situation. Appropriate and pleasant affect. A total of 33 minutes of time were spent preparing this complex discharge summary. Pt was discharged on 04/18/2024 at 4:18 PM. Patient was seen independently by Nurse Practitioner. This document was prepared using [employer] dictation software. Please allow for errors in electrocardiogram technician while rare they do occur. Gabe Disla NP rendered care for this patient independently, reviewed the findings and plan as documented in the note above. I did not physically speak w ith or examine the patient on this date. Patient Condition at Discharge: Stable Plan - Discharge Summary Discharge Rx Participant: No New Discharge Prescriptions: New Ipratropium-Albuterol Nebulize [Duoneb 0.5 mg-3 mg/3 ml Soln] 3 ml INHALATION RT-QID 30 Days #120 each Budesonide-Formot 160-4.5 Mcg [Symbicort 160-4.5 Mcg Inhaler] 2 puff INHALATION RT-BID 30 Days #1 inh Nicotine 14Mg/24Hr Patch [Habitrol] 1 patch TRANSDERM DAILY 30 Days #30 patch predniSONE See Taper PO DIRECTED 12 Days #30 tab Continue Aspirin EC [Ecotrin] 325 mg PO DAILY PRN PRN Reason: Headache Albuterol Sulfate [Albuterol Sulfate Hfa] 2 puff INHALATION RT-QID PRN PRN Reason: Shortness Of Breath rOPINIRole HCL [Requip] 4 mg PO HS PRN PRN Reason: restless legs Discharge Medication List Albuterol Sulfate [Albuterol Sulfate Hfa] 2 puff INHALATION RT-QID PRN 04/16/24 [History] Aspirin EC [Ecotrin] 325 mg PO DAILY PRN 04/16/24 [History] rOPINIRole HCL [Requip] 4 mg PO HS PRN 04/16/24 [History] Budesonide-Formot 160-4.5 Mcg [Symbicort 160-4.5 Mcg Inhaler] 2 puff INHALATION RT-BID 30 Days #1 inh 04/18/24 [Rx] Ipratropium-Albuterol Nebulize [Duoneb 0.5 mg-3 mg/3 ml Soln] 3 ml INHALATION RT-QID 30 Days #120 each 04/18/24 [Rx] Nicotine 14Mg/24Hr Patch [Habitrol] 1 patch TRANSDERM DAILY 30 Days #30 patch 04/18/24 [Rx] predniSONE See Taper PO DIRECTED 12 Days #30 tab 04/18/24 [Rx] Follow up Appointment(s)/Referral(s): Paredes Carol Marti [NON-STAFF] - As Needed Alex Chakraborty MD [STAFF PHYSICIAN] - As Needed (Local PCP you requested information on ) Eusebio Boateng DO [Doctor of Osteopathic Medicine] - 1 Week Shan Fu MD [Primary Care Provider] - 1-2 days Patient Instructions/Handouts: How to Stop Smoking (DC), Using Oxygen at Home (DC), COPD (Chronic Obstructive Pulmonary Disease) (DC) Activity/Diet/Wound Care/Special Instructions: Activity: As tolerated. Take breaks as needed. Diet: Resume regular diet Special Instructions: It is important for you to follow-up with material analyst as you will need to dorothea edule further testing such as recommended outpatient PET CT for evaluation of possible lung nodule vs scar tissue, unclear CT results need to be further evaluated. Thank you for allowing us to participate in your care, it was truly a pleasure having you for our patient!!! . Discharge Disposition: HOME SELF-CARE
[2024-04-18 17:10] LABS: Glucose,Whole Blood 133 mg/dL (70-110)
== END 2024-04-18 17:46 | disposition home or self-care (01) ==
LOC: EC 17:50 → 6NMEDSUR 19:42
PROVIDERS: ADMIT Internal Medicine; ATTEND Internal Medicine
DX: J44.1 Chronic obstructive pulmonary disease with (acute) exacerbation (principal); J96.01 Acute respiratory failure with hypoxia; J43.9 Emphysema, unspecified; E87.1 Hypo-osmolality and hyponatremia; R91.1 Solitary pulmonary nodule; E86.1 Hypovolemia; R73.9 Hyperglycemia, unspecified; E87.8 Other disorders of electrolyte and fluid balance, not elsewhere classified; E87.29 Other acidosis; F17.210 Nicotine dependence, cigarettes, uncomplicated; Z71.6 Tobacco abuse counseling; Z66 Do not resuscitate
CPT/HCPCS: 96376 ×2; 96361 ×2; 96372 ×2; 96374; 99285; 36415; 94640 ×5; 36600; 94760; 93005; 85379; 83880; 80053 ×2; 82805; 83605; 83735 ×2; 84100; 84484; 85025 ×2; 85610; 85730; 83036; 71045 ×2; 71260; G0378 ×3; J1650 ×2; Q9967; J2919 ×3

== ENCOUNTER → 2024-06-02 | Outpatient (CLI) | payer BC ==
--- NOTE | 2024-06-04 16:05 | PE ---
EXAMINATION TYPE: PET CT fusion skull to thigh DATE OF EXAM: 06/02/2024 CLINICAL INDICATION:Female, 63 years old with history of R91.1 Lung nodule; TECHNIQUE: Following the intravenous administration of 10.7 mCi of F-18 FDG, whole body images are performed from the skull base to the midthigh. Images are reviewed on the computer in the coronal, a xial, and sagittal planes. Reconstructed rotating images are created on independent workstation and reviewed on the computer. A non-contrast CT is performed in conjunction with the PET scan. Glucose level 86 mg/dL CT DLP: 211.84 mGycm, Automated exposure control for dose reduction was used. COMPARISON: CT 04/18/2024, PET/CT None, MRI: None FINDINGS: Mediastinal SUV mean is 2.0. Hepatic parenchyma SUV mean is 2.5. SKULL BASE AND NECK: No suspicious radiotracer activity. CHEST, MEDIASTINUM, AND HILAR REGION: Left apical pleural calcified plaque. Demonstrates a maximum SUV of 2.0 which is at background levels . Posterior right upper lung calcific density measuring 1.4 x 0.6 cm. Demonstrates a maximum SUV of 1.6 which is at background levels. Right lower lobe 1 cm focal consolidation (series 3, image 121). Demonstrates a maximum SUV of 1.5 wh ich is at background levels. Posterior medial superior segment right lower lobe irregular opacity with cavitation measuring up to 1.7 cm with max SUV of 5.8 (series 3, image 82). Moderate centrilobular emphysematous changes. Regions of linear scarring within the bilateral upper l ungs. ABDOMEN AND PELVIS: No suspicious radiotracer activity. MUSCULOSKELETAL STRUCTURES: No suspicious radiotracer activity. OTHER CT: Atherosclerotic calcification of the intracranial vasculature. Mild bilateral carotid bulb calcifications. Minimal coronary artery calcifications. Mild atherosclerotic calcification of the aor ta and its branches. Pelvic phleboliths. IMPRESSION: Posterior medial right lower lobe superior segment irregular opacity with cavitation demonstrating mi ld FDG activity favored to represent an infectious/inflammatory process however developing neoplasm i s not excluded. Additional previously seen calcified irregular opacities do not demonstrate suspiciou s FDG activity. Follow-up CT chest in 3 months is recommended. [facility], , 06/04/2024 4:03 PM
== END | disposition home or self-care (01) ==
LOC: RADPETMAIN 13:24
PROVIDERS: ATTEND Internal Medicine Critical Care Medicine
DX: R91.1 Solitary pulmonary nodule (principal); I70.0 Atherosclerosis of aorta
CPT/HCPCS: 78815; A9552

== ENCOUNTER → 2024-09-27 | Outpatient (CLI) | payer BC ==
--- NOTE | 2024-09-27 15:47 | CT ---
CT chest without contrast HISTORY: Pulmonary nodule. COMPARISON: CT chest dated 04/18/2024 TECHNIQUE: Multiple axial images were obtained through the thorax without IV contrast. FINDINGS: There are marked emphysematous changes with an upper lobe predominance. There is stable marked pleura l parenchymal scarring in the upper lobes. There are no new or suspicious lung masses or nodules. There is no pleural effusion, pleural thickening or pneumothorax. The great vessels the chest are normal. There is no mediastinal, hilar or axillary adenopathy. There is no pulmonary embolus. Limited scanning of the upper abdomen reveals no gross abnormality.. No focal osseous lesions are seen. IMPRESSION: 1. Stable marked emphysematous changes and marked pleural parenchymal scarring in the upper lobes. 2. No new or suspicious lung mass or nodule. 3. No acute cardiopulmonary disease. [facility], , 09/27/2024 3:44 PM
== END | disposition home or self-care (01) ==
LOC: RADCTMAIN 15:08
PROVIDERS: ATTEND Internal Medicine Critical Care Medicine
DX: J43.9 Emphysema, unspecified (principal); R91.1 Solitary pulmonary nodule; J98.4 Other disorders of lung
CPT/HCPCS: 71260; Q9967